=== PATIENT | female | born 1960 | race Caucasian/White ===

== ENCOUNTER 2017-06-21 12:19 | Inpatient (IN) ==
[2017-06-21] MEDS ORDERED: 0.9 % Sodium Chloride 1,000 ML IVC ONE ×2 (12:44→13:41)
[2017-06-21] MEDS ORDERED: Ibuprofen 800 MG TABLET PO ONE (12:45)
--- NOTE | 2017-06-21 12:48 | Emergency Department Note ---
Disposition Clinical Impression: Urinary tract infection, SIRS (systemic inflammatory response syndrome), Leukocytosis Disposition: Admitted As Inpatient Condition: Good Referrals: Mckay Yan MD [Primary Care Provider] - Forms: ED Satisfaction Letter Time of Disposition: 14:47 General Adult HPI - General Chief complaint: ED Shortness of Breath/Dyspnea Stated complaint: from PCP, R/O Sepsis Time Seen by Provider: 06/21/17 12:26 Source: patient, family Limitations: no limitations Nursing Notes Reviewed: Yes Vital Signs Reviewed: Yes - History of Present Illness HPI Narrative: 56-year-old female presents to the emergency room for fevers. States she has been sick for nearly a week with intermittent fevers up to 103. She states she has low back pain as well as a headache. She admits to a cough. No chest pain. No abdominal pain. She does have some slight loose stools as well as some nausea and vomiting. She denies any urinary symptoms. No other sick contacts at home. She has been treating her fevers with Tylenol on an as- needed basis. She states she went to her doctor today who sent her to the emergency room. She feels extremely weak and rundown. She has got a bunch of generalized complaints with malaise and fatigue. Onset (ago): week(s) (1 week) Pain Scale: 8 Consistency: constant Improves with: nothing Worsens with: nothing Treatments Prior to Arrival: other (Tylenol) - Related Data Allergies Allergy/AdvReac Type Severity Reaction Status Date / Time No Known Allergies Allergy Verified 06/21/17 12:28 Constitutional: Reports: fever, chills, weakness Eyes: Reports: as per HPI Cardiovascular: Denies: chest pain Respiratory: Reports: cough Gastrointestinal: Reports: nausea, vomiting Genitourinary: Denies: dysuria, frequency Musculoskeletal: Reports: back pain Integumentary: Reports: as per HPI Neurological: Reports: as per HPI Psychiatric: Reports: as per HPI Endocrine: Reports: as per HPI Hematological/Lymphatic: Reports: as per HPI Allergic/Immunologic: Reports: as per HPI Past Medical History - Past Medical History Medical history: Reports: diabetes, hyperlipidemia, hypertension, myocardial infarction - Social History Smoking Status: Never smoker Alcohol use: Reports: none Drug use: Reports: none Physical Exam - General Limitations: no limitations General appearance: alert - Head Head exam: atraumatic, normocephalic - Eye Eye exam: Present: normal appearance - ENT ENT exam: mucous membranes dry, other (Patient has some dry cracked lower lips.) - Neck Neck exam: Present: normal inspection - Chest Chest inspection: Present: normal inspection - Respiratory Respiratory exam: Present: normal lung sounds bilaterally. Absent: respiratory distress - Cardiovascular Cardiovascular exam: Present: normal rhythm, tachycardia - Abdominal Exam Abdominal exam: Present: soft, Non-Tender, normal bowel sounds - Extremities Exam Extremities exam: Present: normal inspection - Back Exam Back exam: Present: normal inspection - Neurological Exam Neurological exam: Present: alert, oriented X3 - Psychiatric Psychiatric exam: Present: normal affect, normal mood - Skin Skin exam: Present: warm, dry, intact Course Vital Signs Temperature 102.8 F H 06/21/17 12:23 Pulse Rate 104 06/21/17 12:23 Respiratory Rate 18 06/21/17 12:23 Blood Pressure 144/94 06/21/17 12:23 O2 Sat by Pulse Oximetry 93 06/21/17 12:23 Temperature 102.8 F H 06/21/17 12:23 Pulse Rate 97 06/21/17 14:02 Respiratory Rate 18 06/21/17 14:02 Blood Pressure 124/67 06/21/17 14:02 O2 Sat by Pulse Oximetry 92 06/21/17 14:02 Oxygen Delivery Oxygen Delivery Room Air Medical Decision Making - [facility] Narrative Medical decision making narrative: It appears the patient is suffering from urosepsis. A urine infection was present on the urinalysis. Chest x-ray was normal. She does have an elevated white count. Patient has a 19,000 white count. Lactate was normal. Patient will need to be admitted for further care of this. I have ordered a second liter of fluid. I have ordered IV Rocephin. Spoke with the hospitalist. No other significant lab abnormalities. - Medical Records Medical records reviewed: Yes I reviewed the patient's medical records. - Lab Data Lab results reviewed: Yes I reviewed the patient's lab results. Result diagrams: 06/21/17 13:12 06/21/17 13:12 Lab Results 06/21/17 06/21/17 06/21/17 Range/Units 12:51 13:12 13:12 WBC 19.5 H (4.3-11.1) K/mcL RBC 4.36 (3.82-4.97) M/mcL Hgb 12.1 (11.5-15.4) g/dL Hct 38.4 (35.3-44.9) % MCV 88.1 (83.0-100.0) fL MCH 27.8 L (28.0-33.3) pg MCHC 31.5 L (31.6-35.5) g/dL RDW 14.6 H (11.5-14.5) % Plt Count 209 (140-400) K/mcL MPV 10.9 (9.4-12.4) fL Immature Gran % 0.7 (0-4) % Seg Neutrophils % 83.5 % Lymphocytes % 10.6 % Monocytes % 4.8 % Eosinophils % 0.1 % Basophils % 0.3 % Neutrophils # 16.3 H (1.6-8.9) K/mcL Lymphocytes # 2.1 (0.6-4.6) K/mcL Monocytes # 0.9 (0.0-1.3) K/mcL Eosinophils # 0.0 (0.0-0.6) K/mcL Basophils # 0.1 (0.0-0.2) K/mcL Sodium 137 (136-145) mEq/L Potassium 3.6 (3.5-4.5) mEq/L Chloride 99 (98-109) mEq/L Carbon Dioxide 25 (19-29) mEq/L BUN 12 (7-20) mg/dL Creatinine 0.92 (0.57-1.11) mg/dL Est GFR ( Amer) > 60 (> 60) Est GFR (Non-Af Amer) > 60 (> 60) BUN/Creatinine Ratio 13 (6-26) Glucose 152 H (70-99) mg/dL Calculated Osmolality 287 (280-300) Lactic Acid (0.5-2.2) mmol/L Calcium 10.2 (8.6-10.8) mg/dL Total Bilirubin 1.1 (0.2-1.2) mg/dL Direct Bilirubin 0.5 (0.0-0.5) mg/dL Indirect Bilirubin 0.6 (0.0-1.2) mg/dL AST 30 (5-34) Units/L ALT 28 (0-55) Units/L Alkaline Phosphatase 152 H (38-126) Units/L Troponin I (0-0.03) ng/mL Serum Total Protein 8.7 H (6.0-8.3) g/dL Albumin 3.5 (3.5-5.0) g/dL Globulin 5.2 H (2.4-3.5) g/dL Albumin/Globulin Ratio 0.7 L (1.1-2.2) Lipase (8-78) Units/L Urine Color Yellow (Yellow) Urine Clarity Clear (Clear) Urine pH 6.5 (5.0-8.0) pH Units Ur Specific [place] 1.012 (1.010-1.025) Urine Protein Negative (Neg-Trace) mg/dL Urine Glucose (UA) Normal (Normal) mg/dL Urine Ketones Negative (Negative) mg/dL Urine Blood Negative (Negative) Urine Nitrite Negative (Negative) Urine Bilirubin Negative (Negative) Urine Urobilinogen Normal (Normal) mg/dL Ur Leukocyte Esterase Moderate H (Negative) Urine Microscopic RBC 0-3 (0-3) per hpf Urine Microscopic WBC 30-50 H (0-3) per hpf Ur Squamous Epith Cells Many H (None-Few) per lpf Urine Bacteria None Seen (None-Few) per hpf Hyaline Casts None Seen (None-Few) per lpf Ur Culture Indicated? YES A (NO) 06/21/17 06/21/17 06/21/17 Range/Units 13:12 13:12 13:12 WBC (4.3-11.1) K/mcL RBC (3.82-4.97) M/mcL Hgb (11.5-15.4) g/dL Hct (35.3-44.9) % MCV (83.0-100.0) fL MCH (28.0-33.3) pg MCHC (31.6-35.5) g/dL RDW (11.5-14.5) % Plt Count (140-400) K/mcL MPV (9.4-12.4) fL Immature Gran % (0-4) % Seg Neutrophils % % Lymphocytes % % Monocytes % % Eosinophils % % Basophils % % Neutrophils # (1.6-8.9) K/mcL Lymphocytes # (0.6-4.6) K/mcL Monocytes # (0.0-1.3) K/mcL Eosinophils # (0.0-0.6) K/mcL Basophils # (0.0-0.2) K/mcL Sodium (136-145) mEq/L Potassium (3.5-4.5) mEq/L Chloride (98-109) mEq/L Carbon Dioxide (19-29) mEq/L BUN (7-20) mg/dL Creatinine (0.57-1.11) mg/dL Est GFR ( Amer) (> 60) Est GFR (Non-Af Amer) (> 60) BUN/Creatinine Ratio (6-26) Glucose (70-99) mg/dL Calculated Osmolality (280-300) Lactic Acid 1.7 (0.5-2.2) mmol/L Calcium (8.6-10.8) mg/dL Total Bilirubin (0.2-1.2) mg/dL Direct Bilirubin (0.0-0.5) mg/dL Indirect Bilirubin (0.0-1.2) mg/dL AST (5-34) Units/L ALT (0-55) Units/L Alkaline Phosphatase (38-126) Units/L Troponin I 0.00 (0-0.03) ng/mL Serum Total Protein (6.0-8.3) g/dL Albumin (3.5-5.0) g/dL Globulin (2.4-3.5) g/dL Albumin/Globulin Ratio (1.1-2.2) Lipase 14 (8-78) Units/L Urine Color (Yellow) Urine Clarity (Clear) Urine pH (5.0-8.0) pH Units Ur Specific [place] (1.010-1.025) Urine Protein (Neg-Trace) mg/dL Urine Glucose (UA) (Normal) mg/dL Urine Ketones (Negative) mg/dL Urine Blood (Negative) Urine Nitrite (Negative) Urine Bilirubin (Negative) Urine Urobilinogen (Normal) mg/dL Ur Leukocyte Esterase (Negative) Urine Microscopic RBC (0-3) per hpf Urine Microscopic WBC (0-3) per hpf Ur Squamous Epith Cells (None-Few) per lpf Urine Bacteria (None-Few) per hpf Hyaline Casts (None-Few) per lpf Ur Culture Indicated? (NO) - Radiology Data Radiology results reviewed: Yes I reviewed the patient's radiology results. Critical Care Time Critical Care Time: Yes Total Critical Care Time: 35 Attestation: Critical care time spent in medical resuscitation with IV fluids and treatment of SIRS criteria.
[2017-06-21 13:15] LABS: Bilirubin,Urine Negative (Negative); Blood,Urine Negative (Negative); Clarity,Urine Clear (Clear); Color,Urine Yellow (Yellow); Glucose,Urine (UA) Normal (Normal); Ketones,Urine Negative (Negative); Leukocyte Esterase,Urine Moderate (Negative); Nitrite,Urine Negative (Negative); PH,Urine 6.5 pH Units (5.0-8.0); Protein,Urine Negative (Neg-Trace); Specific Gravity,Urine 1.012 (1.010-1.025); Urobilinogen,Urine Normal (Normal)
[2017-06-21 13:18] LABS: Bacteria,Urine None Seen per hpf (None-Few); Hyaline Casts,Urine None Seen per lpf (None-Few); RBC,Urine 0-3 per hpf (0-3); Squamous Epithelial Cell,Urine Many per lpf (None-Few); WBC,Urine 30-50 per hpf (0-3)
[2017-06-21 13:23] LABS: Basophils # 0.1 K/mcL (0.0-0.2); Basophils % 0.3 %; Eosinophils % 0.1 %; Hematocrit 38.4 % (35.3-44.9); Hemoglobin 12.1 g/dL (11.5-15.4); Immature Granulocytes % 0.7 % (0-4); Lymphocytes # 2.1 K/mcL (0.6-4.6); Lymphocytes % 10.6 %; Mean Corpuscular HGB Conc 31.5 g/dL (31.6-35.5); Mean Corpuscular Hemoglobin 27.8 pg (28.0-33.3); Mean Corpuscular Volume 88.1 fL (83.0-100.0); Mean Platelet Volume 10.9 fL (9.4-12.4); Monocytes # 0.9 K/mcL (0.0-1.3); Monocytes % 4.8 %; Neutrophils # 16.3 K/mcL (1.6-8.9); Platelet Count 209 K/mcL (140-400); Red Blood Count 4.36 M/mcL (3.82-4.97); Red Cell Distribution Width 14.6 % (11.5-14.5); Segmented Neutrophils % 83.5 %
[2017-06-21 13:52] LABS: Alanine Aminotransferase 28 Units/L (0-55); Albumin 3.5 g/dL (3.5-5.0); Albumin/Globulin Ratio 0.7 (1.1-2.2); Alkaline Phosphatase 152 Units/L (38-126); Aspartate Amino Transferase 30 Units/L (5-34); BUN/Creatinine Ratio 13 (6-26); Bilirubin,Direct 0.5 mg/dL (0.0-0.5); Bilirubin,Indirect 0.6 mg/dL (0.0-1.2); Bilirubin,Total 1.1 mg/dL (0.2-1.2); Blood Urea Nitrogen 12 mg/dL (7-20); Calcium 10.2 mg/dL (8.6-10.8); Carbon Dioxide 25 mEq/L (19-29); Chloride 99 mEq/L (98-109); Globulin 5.2 g/dL (2.4-3.5); Glucose 152 mg/dL (70-99); Osmolality,Calculated 287 (280-300); Potassium 3.6 mEq/L (3.5-4.5); Sodium 137 mEq/L (136-145); Total Protein 8.7 g/dL (6.0-8.3); eGFR For African Americans > 60 (> 60); eGFR For Non-African Americans > 60 (> 60)
[2017-06-21] MEDS ORDERED: Naloxone 0.4 MG/ML INJ IVP PRN (17:39)
[2017-06-21] MEDS ORDERED: Ondansetron 4 MG/2 ML VIAL IVP PRN (17:39)
--- NOTE | 2017-06-21 17:52 | Internal Med History&Physical ---
Date of Encounter: 06/21/17 Time of Encounter: 17:48 Assessment and Plan (1) SIRS (systemic inflammatory response syndrome) Current visit: Yes Status: Acute Patient presents to the ED with high-grade fever of 103, lasting longer than 3 days, tachycardia, hypotension, meets SIRS criteria. She has probable sepsis secondary to UTI infection. In the ED started on broad-spectrum antibiotics. Plan is continue the broad-spectrum antibiotics ceftriaxone 1 g every 24 hours and narrow antibiotics based on results of urine cultures. If symptoms worsen or persist consider obtaining a retroperitoneal ultrasound. Additionally blood cultures were sent on the ED. Awaiting results of blood cultures and will treat based upon results. Received 2 L fluid bolus in the emergency department , plan is to continue gentle hydration with 0.9 with saline at 100 mL per hour. Continuous telemetry Continuous SPO2 CBC CMP in the a.m. Hold blood pressure medications for now she is borderline hypotensive; consider restarting if the patient becomes hypertensive (2) Sepsis secondary to UTI Current visit: Yes Status: Acute Presented to [facility] with fevers, dark urine that is malodorous, chills, night sweats, fatigue, weakness. UA and EGD revealed leukocytes. Probable UTI, additionally, patient meets SIRS criteria. Urine culture AND blood cultures sent and ED. additionally, she was given ceftriaxone 1 g. Plan is to admit as inpatient Continue antibiotic therapy with ceftriaxone 1 g daily-will consider de- escalating antibiotic therapy upon results of urine culture; plan is to start with antibiotic therapy and if no improvement or if symptoms persist we will obtain a retroperitoneal ultrasound. Gentle hydration with 0.9% normal saline at 100 miles per hour. Continuous cardiac monitoring Continuous SPO2 monitoring Complete blood count and CMP ordered in the a.m. DVT prophylaxis started with 40 mg SC Lovenox (3) HTN (hypertension) Current visit: Yes Status: Chronic History of essential hypertension. However, at this time she is borderline with systolic blood pressures running in the low 100s. She did receive a 2 L fluid bolus in the ED which temporarily improved her systolic blood pressure to 120'S. However, at the time of exam systolic blood pressures were in the low 100s. We will hold home blood pressure medications for now. Continue to monitor and consider restarting home blood pressure medications if the patient becomes hypertensive. Qualifiers: Hypertension type: essential hypertension Qualified Code(s): I10 - Essential (primary) hypertension (4) Diabetes Current visit: Yes Status: Chronic Patient has history of diabetes mellitus. Is on metformin at home. Plan is to stop metformin during this admission and place her on low sliding scale insulin coverage with before meals and at bedtime Accu-Cheks. We will consider altering sliding scale coverage used upon glucose results. Additionally, she does have neuropathy in all 4 extremities, we will continue home dose of gabapentin Qualifiers: Diabetes mellitus type: type 2 Diabetes mellitus complication status: with unspecified complications Diabetes mellitus process excellence manager insulin use: without process excellence manager use Qualified Code(s): E11.8 - Type 2 diabetes mellitus with unspecified complications (5) Leukocytosis Current visit: Yes Status: Acute Leukocytosis noted upon lab work without bandemia. Highly suspicious for sepsis secondary to UTI. Service criteria met and patient is being treated as sepsis secondary to UTI. Complete blood count in the morning Qualifiers: Leukocytosis type: unspecified Qualified Code(s): D72.829 - Elevated white blood cell count, unspecified (6) DVT prophylaxis Current visit: Yes Status: Acute Due to sepsis and prolonged immobilization secondary to illness the patient is a high risk for DVT. Starting Lovenox SC 40 mg daily Internal Medicine - H&P: HPI Chief complaint: Fever, malaise, fatigue, vomiting, diarrhea ongoing X4 DAYS Admitted From: Home Plans for Post Hospital Care: Home History of present illness: Ms. Gaxiola is a 56 year old female with a past medical history of hypertension, diabetes, neuropathy, HLD, GERD, [place] with CABG 4 vessels. She presents to [facility] today with a 4 day history of fatigue, malaise, low back pain, leg, dark foul-smelling urine, and fever. She reports fever being 103 at the highest and 101 at the lowest, lasting approximate 4 days. All information obtained from chart review and patient report. She denies being on any antibiotics within the last 90 days, denies having any history of UTI. Admits that 4 days ago she began experiencing high-grade fever, dark colored urine with a foul smell, and chills. She came to the ED today to seek treatment because she began to feel weakness and fatigue as well. He has been taking Tylenol at home and reports that it is not helping and fevers. She denies any dysuria or urinary frequency or suprapubic pain, however, she does admit to low back pain which at the time of this exam appears to be lumbar pain. She had a urinalysis with urine cultures sent in the ED, and blood cultures drawn. Urinalysis indicated that she had leukocytes in her urine and then culture was indicated she received 1 g of ceftriaxone in the ED. Distally , she received 2 L fluid bolus as she was hypotensive. Blood pressure initially responded to fluid bolus however, at the time of my assessment began to drop back down to the low 100s systolically. Additionally, chest x-ray was completed in the ED and negative for any acute process. Lactic acids were drawn a result of 1.7. Troponin was drawn and negative at 0.00. She is being admitted to the [facility] for further workup and evaluation. Past Med Surg Social Fam HX - Past Medical History Medical history: diabetes, hyperlipidemia, hypertension, myocardial infarction - Social History Smoking Status: Never smoker Alcohol use: none Drug use: none - Family History Father Race: Family Member Ethnicity: Non- Living Status: Still Living Hx Family Endocrine Disorder: Yes (Diabetes mellitus) Mother Race: Family Member Ethnicity: Non- Living Status: Still Living Hx Family Cardiac Disorders: Yes (CAD) Internal Medicine - H&P: Meds Atorvastatin [Lipitor] 40 mg PO HS 06/21/17 [History] Cholecalciferol (Vitamin D3) [Vitamin D] 2,000 unit PO DAILY 06/21/17 [History] Citalopram Hydrobromide [Celexa] 40 mg PO DAILY 06/21/17 [History] Cyclobenzaprine [Flexeril] 10 mg PO TID 06/21/17 [History] Gabapentin [Neurontin] 600 mg PO TID 06/21/17 [History] HYDROcodone/Acet 5/325 mg [[place] 5-325 mg] 1 tab PO Q6H PRN 06/21/17 [History] Isosorbide MONOnitrate (24 HR) [Imdur] 60 mg PO DAILY 06/21/17 [History] Lisinopril [Zestril] 5 mg PO DAILY 06/21/17 [History] Metoprolol [Lopressor] 25 mg PO BID 06/21/17 [History] Omeprazole [PriLOSEC] 40 mg PO DAILY 06/21/17 [History] hydroCHLOROthiazide [Hydrochlorothiazide] 12.5 mg PO DAILY 06/21/17 [History] metFORMIN [Glucophage] 500 mg PO BIDWM 06/21/17 [History] Allergies No Known Allergies Allergy (Verified 06/21/17 12:28) All Systems PM: A 10-system review of systems was performed and is negative for pertinent findings except as documented above in the HPI. - Constitutional Constitutional: chills, fatigue, lethargy, malaise, weakness, no fever(s), no night sweats Additional comments: Chills ongoing for last 4 days along with fever and malaise and fatigue - EENT Eyes: no change in vision, no discharge, no pain, no photophobia Ears: no ear discharge, no ear pain, no tinnitus Nose, mouth and throat: no dysphagia, no nasal discharge, no neck pain, no sore throat - Cardiovascular Cardiovascular ROS IM: no chest pain, no diaphoresis, no dyspnea, no edema, no lightheadedness, no palpitations, no syncope - Respiratory Respiratory: no cough, no dyspnea, no wheezing, no excessive phlegm production - Gastrointestinal Gastrointestinal: no abdominal pain, no change in bowel habits, no change in stool character, no constipation, no diarrhea, no hematemesis, no hematochezia, no melena, no nausea, no vomiting - Genitourinary Genitourinary: no change in urinary stream, no difficulty urinating, no difficulty voiding, no dysuria, no flank pain, no hematuria, no pelvic pain, no post void dribbling, no urinary frequency, no urinary hesitancy, no urinary incontinence, no urinary urgency Additional comments: Denies any difficulty urinating, urgency, frequency, dysuria. However, does admit to low back pain. - Musculoskeletal Musculoskeletal ROS IM: back pain (LOW Back pain), no numbness, no tingling - Integumentary Integumentary IM: no rash, no unusual bruising - Neurological Neurological ROS: no confusion, no convulsions, no disequilibrium, no dizziness , no focal weakness, no numbness, no tingling, no tremor(s) - Hematologic/Lymphatic Hematologic/Lymphatic: no easy bruising - Constitutional Vitals: Temp Pulse Resp BP Pulse Ox 100.4 F H 83 18 117/63 95 06/21/17 14:02 06/21/17 15:46 06/21/17 16:36 06/21/17 16:36 06/21/17 15:46 General appearance: Present: cooperative, A&O X 3, pleasant, no acute distress, answers questions appropriately (Resident and resting in bed upon examination) - Head Head exam: Present: atraumatic, normocephalic - Eye Eye exam: Present: EOMI, PERRL, conjuntiva pink, sclera anicteric Pupils: Present: PERRL - Neck Neck exam general surgery: Present: supple, trachea midline. Absent: lymphadenopathy - Respiratory Respiratory exam: Present: CTAB. Absent: accessory muscle use, rales, rhonchi, wheezes - Cardiovascular Cardiovascular exam: Present: RRR, +S1, +S2. Absent: diastolic murmur, gallop, rubs, systolic murmur - GI/Abdominal GI/Abdominal exam: Present: normal bowel sounds, soft, no peritoneal signs. Absent: distended, guarding, tenderness - Extremities Exam Extremities exam: Present: warm, radial pulses palpable and symmetrical. Absent : calf tenderness, cyanotic, pedal edema - Back Exam Back exam: Absent: CVA tenderness (L), CVA tenderness (R) Additional comments: Lumbar spinal pain noted, however, no pain to palpation. Patient admits to pain upon prolonged sitting, lying. Intermittent pain with range of motion - Neurological Exam Neurological exam: Present: alert, CN II-XII intact, oriented X3, no focal deficits, strengths equal and symetr throughout. Absent: pronater drift, facial droop, speech deficit - Psychiatric Psychiatric exam: Present: normal mood - Skin Skin exam: Present: dry, intact Internal Med - H&P Results - Labs CBC & Chem 7: 06/21/17 13:12 06/21/17 13:12 - Diagnostic Studies Chest x-ray Status: image reviewed by me (Chest x-ray exhibited no acute process)
[2017-06-21] MEDS ORDERED: D5% in Water 1,000 ML IVC PRN (18:13)
[2017-06-21] MEDS ORDERED: *HR* Dextrose 50 % in Water (Syg) 50 ML SYRINGE IVP PRN (18:13)
[2017-06-21] MEDS ORDERED: Dextrose Gel 15 GM PO PRN ×2 (18:13)
[2017-06-21] MEDS: Insulin LISPRO 300 UNITS/3 ML VIAL SQ SCH (19:39)
[2017-06-21] MEDS: 0.9 % Sodium Chloride 1,000 ML IVC SCH (19:48)
[2017-06-21] MEDS: Gabapentin 300 MG CAPSULE PO SCH (19:51)
[2017-06-22] MEDS: Ibuprofen 400 MG TABLET PO PRN ×2 (04:14→21:16)
[2017-06-22] MEDS: *HR* Enoxaparin 40 MG/0.4 ML SYRINGE SQ SCH (05:03)
[2017-06-22] MEDS: 0.9 % Sodium Chloride 1,000 ML IVC SCH ×2 (05:03→12:24)
[2017-06-22 05:04] LABS: Basophils % 0.2 %; Eosinophils # 0.1 K/mcL (0.0-0.6); Eosinophils % 0.6 %; Hematocrit 30.5 % (35.3-44.9); Immature Granulocytes % 0.4 % (0-4); Lymphocytes # 1.6 K/mcL (0.6-4.6); Lymphocytes % 13.4 %; Mean Corpuscular HGB Conc 32.5 g/dL (31.6-35.5); Mean Corpuscular Hemoglobin 28.3 pg (28.0-33.3); Mean Corpuscular Volume 87.1 fL (83.0-100.0); Mean Platelet Volume 11.6 fL (9.4-12.4); Monocytes # 0.7 K/mcL (0.0-1.3); Neutrophils # 9.6 K/mcL (1.6-8.9); Platelet Count 162 K/mcL (140-400); Red Cell Distribution Width 14.6 % (11.5-14.5); Segmented Neutrophils % 79.4 %
[2017-06-22 05:10] LABS: Hemoglobin 9.9 g/dL (11.5-15.4)
[2017-06-22 05:23] LABS: Alanine Aminotransferase 22 Units/L (0-55); Albumin 2.8 g/dL (3.5-5.0); Albumin/Globulin Ratio 0.7 (1.1-2.2); Alkaline Phosphatase 126 Units/L (38-126); Aspartate Amino Transferase 24 Units/L (5-34); BUN/Creatinine Ratio 16 (6-26); Bilirubin,Total 0.7 mg/dL (0.2-1.2); Blood Urea Nitrogen 12 mg/dL (7-20); Calcium 8.7 mg/dL (8.6-10.8); Carbon Dioxide 25 mEq/L (19-29); Chloride 108 mEq/L (98-109); Globulin 4.2 g/dL (2.4-3.5); Glucose 141 mg/dL (70-99); Osmolality,Calculated 290 (280-300); Potassium 3.7 mEq/L (3.5-4.5); Sodium 139 mEq/L (136-145); eGFR For African Americans > 60 (> 60); eGFR For Non-African Americans > 60 (> 60)
[2017-06-22] MEDS: Insulin LISPRO 300 UNITS/3 ML VIAL SQ SCH ×4 (09:52→21:17)
[2017-06-22] MEDS: Gabapentin 300 MG CAPSULE PO SCH ×3 (09:52→21:15)
[2017-06-22] MEDS: Cholecalciferol (D-3) 1,000 UNIT TABLET PO SCH (09:53)
[2017-06-22] MEDS: Isosorbide MONOnitrate (24 HR) 60 MG TAB.ER.24H PO SCH (09:53)
--- NOTE | 2017-06-22 13:04 | Internal Med Progress Note ---
<Martin Mendez - Last Filed: 06/22/17 14:22> Date of Encounter: 06/22/17 Time of Encounter: 12:59 - Assessment and plan (1) Sepsis Current Visit: Yes Status: Acute Assessment and plan: In ED fever 3/4 fever 103, 102.8, WBC 19.5. ED gave ceftriaxone, flagyl. most likely GI vs viral gi infection vs less likely pneumonia vs less likely UTI. CXR 8/10 - no evidence of acute cardiopulmonary disease. Urine Cx - no pathogens. UA moderate for luekocyte esterase. Today - T97.7, HR 84, RR 15, WBC 12.1 GI panel w/ c. diff - pending. Will start on PO vanc if comes back negative Blood culture - pending fluids stopped ct. flagyl + ceftriaxone Qualifiers: Qualified Code(s): A41.9 - Sepsis, unspecified organism (2) HTN (hypertension) Current Visit: Yes Status: Chronic Assessment and plan: BP have been stable. home ACEI restarted Qualifiers: Hypertension type: essential hypertension Qualified Code(s): I10 - Essential (primary) hypertension (3) DVT prophylaxis Current Visit: Yes Status: Acute Assessment and plan: continue Lovenox (4) Diabetes Current Visit: Yes Status: Chronic Assessment and plan: Goal <180 Continue SSI Qualifiers: Diabetes mellitus type: type 2 Diabetes mellitus complication status: with unspecified complications Diabetes mellitus nursing home insulin use: without senior electronics design engineer use Qualified Code(s): E11.8 - Type 2 diabetes mellitus with unspecified complications - Subjective Interval history: Ms Gaxiola is 56 yo F admit day 1 due to 4 day of fatigue, low back pain, dark foul smelling urine and stool, and fever of 103 with Hx: HTN, DM, neuropathy, HLD, GERD, [place] w/ CABG 4 vessels. Patient reports that "whatever you're doing it's helping" but had a foul smelling water bowel movement today. she denies current f/c/chest pain/dyspnea. - Constitutional Vitals: Temp Pulse Resp BP Pulse Ox 98.3 F 83 18 108/56 94 06/22/17 12:29 06/22/17 12:29 06/22/17 12:29 06/22/17 12:29 06/22/17 12:29 General appearance: Present: cooperative, A&O X 3, pleasant, no acute distress, answers questions appropriately (Resident and resting in bed upon examination) - Head Head exam: Present: atraumatic, normocephalic - Respiratory Respiratory exam: Present: CTAB. Absent: accessory muscle use, rales, rhonchi, wheezes - Cardiovascular Cardiovascular exam: Present: RRR, +S1, +S2. Absent: diastolic murmur, gallop, rubs, systolic murmur - GI/Abdominal GI/Abdominal exam: Present: normal bowel sounds, soft, no peritoneal signs. Absent: distended, tenderness - Neurological Exam Neurological exam: Present: alert, oriented X3 - Psychiatric Psychiatric exam: Present: normal affect, normal mood Internal Medicine: Result - Labs CBC & Chem 7: 06/22/17 04:06 06/22/17 04:06 Labs: Short CBC 06/22/17 Range/Units 04:06 WBC 12.1 H (4.3-11.1) K/mcL Hgb 9.9 L D (11.5-15.4) g/dL Hct 30.5 L (35.3-44.9) % Plt Count 162 (140-400) K/mcL Neutrophils # 9.6 H (1.6-8.9) K/mcL BMP 06/22/17 04:06 Sodium 139 Potassium 3.7 Chloride 108 Carbon Dioxide 25 BUN 12 Creatinine 0.76 Glucose 141 H Calcium 8.7 Liver Function 06/22/17 Range/Units 04:06 Total Bilirubin 0.7 (0.2-1.2) mg/dL AST 24 (5-34) Units/L ALT 22 (0-55) Units/L Alkaline Phosphatase 126 (38-126) Units/L Albumin 2.8 L (3.5-5.0) g/dL Consult Discharge Plan - Plan Referrals: Mckay Yan MD [Primary Care Provider] - (web request sent on 06/22/17) <Kavon Anthony - Last Filed: 06/22/17 16:06> Date of Encounter: 06/22/17 - Constitutional Vitals: Temp Pulse Resp BP Pulse Ox 98.3 F 83 18 108/56 94 06/22/17 12:29 06/22/17 12:29 06/22/17 12:29 06/22/17 12:29 06/22/17 12:29 Internal Medicine: Result - Labs CBC & Chem 7: 06/22/17 04:06 06/22/17 04:06 Labs: Short CBC 06/22/17 Range/Units 04:06 WBC 12.1 H (4.3-11.1) K/mcL Hgb 9.9 L D (11.5-15.4) g/dL Hct 30.5 L (35.3-44.9) % Plt Count 162 (140-400) K/mcL Neutrophils # 9.6 H (1.6-8.9) K/mcL BMP 06/22/17 04:06 Sodium 139 Potassium 3.7 Chloride 108 Carbon Dioxide 25 BUN 12 Creatinine 0.76 Glucose 141 H Calcium 8.7 Liver Function 06/22/17 Range/Units 04:06 Total Bilirubin 0.7 (0.2-1.2) mg/dL AST 24 (5-34) Units/L ALT 22 (0-55) Units/L Alkaline Phosphatase 126 (38-126) Units/L Albumin 2.8 L (3.5-5.0) g/dL - Attending Attestation I examined this patient and my medical decision-making was reviewed with the Resident Physician on 06/22/17. I agree with the documented findings, disposition and treatment plan as described except to the extent set forth below. 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 CXR no infiltraes, UA dorty,Urine culture: No growth A/P Presumed sepsis: Continue current management, increase ceftriaxone to 2g, add flagyl po, send stool work up, send C.diff Resume home meds Rest of details as in resident physician's documentation
--- NOTE | 2017-06-22 15:01 | Electrocardiograph Report ---
[address] [place] [address] Test Date: 2017-06-21 Pat Name: Cary Gaxiola Department: 104 Room: 2A Gender: F Block Chopper Hand: AM : 1960 Requested By: Gerardo Maravilla Order Number: [id number] Reading MD: Elisa Goss Measurements Intervals [place] Rate: 100 P: 8 FL: 165 QRS: 15 QRSD: 88 T: 30 QT: 354 QTc: 411 Interpretive Statements SINUS TACHYCARDIA LOW QRS VOLTAGE IN PRECORDIAL LEADS MODERATE ST DEPRESSION Electronically Signed On 06-22-2017 14:59:53 EDT by Elisa Goss
[2017-06-22 15:37] LABS: Adenovirus F 40/41 PCR Not detected (Not detect); Astrovirus PCR Not detected (Not detect); C.difficile Toxin A/B by PCR Not detected (Not detect); Campylobacter by PCR Not detected (Not detect); Cryptosporidium by PCR Not detected (Not detect); Cyclospora cayetanensis PCR Not detected (Not detect); E. coli O157 by PCR Not detected (Not detect); Entamoeba histolytica PCR Not detected (Not detect); Enteroaggregative E.coli(EAEC) Not detected (Not detect); Enteropathogenic E.coli(EPEC) Not detected (Not detect); Enterotoxigenic E.coli (ETEC) Not detected (Not detect); Giardia lamblia PCR Not detected (Not detect); Norovirus GI/GII PCR Not detected (Not detect); Plesiomonas shigelloides PCR Not detected (Not detect); Rotavirus A PCR Not detected (Not detect); Salmonella PCR Not detected (Not detect); Sapovirus PCR Not detected (Not detect); Shig/EnteroinvasiveE coli EIEC Not detected (Not detect); Shigalike tox-prod E coli STEC Not detected (Not detect); Vibrio PCR Not detected (Not detect); Vibrio cholerae PCR Not detected (Not detect); Yersinia enterocolitica PCR Not detected (Not detect)
[2017-06-22] MEDS ORDERED: MetroNIDAZOLE 500 MG/100 ML 500 MG/100 ML BAG IVPB SCH (16:00)
[2017-06-22] MEDS: metroNIDAZOLE 500 MG TABLET PO SCH ×2 (17:43→21:16)
[2017-06-23] MEDS: *HR* Enoxaparin 40 MG/0.4 ML SYRINGE SQ SCH (04:21)
[2017-06-23 06:31] LABS: Hematocrit 31.5 % (35.3-44.9); Hemoglobin 9.7 g/dL (11.5-15.4); Mean Corpuscular HGB Conc 30.8 g/dL (31.6-35.5); Mean Corpuscular Volume 90.8 fL (83.0-100.0); Mean Platelet Volume 11.5 fL (9.4-12.4); Platelet Count 145 K/mcL (140-400); Red Blood Count 3.47 M/mcL (3.82-4.97); Red Cell Distribution Width 14.7 % (11.5-14.5)
[2017-06-23 06:46] LABS: BUN/Creatinine Ratio 14 (6-26); Blood Urea Nitrogen 10 mg/dL (7-20); Calcium 8.9 mg/dL (8.6-10.8); Carbon Dioxide 27 mEq/L (19-29); Chloride 108 mEq/L (98-109); Glucose 124 mg/dL (70-99); Osmolality,Calculated 294 (280-300); Potassium 3.5 mEq/L (3.5-4.5); Sodium 142 mEq/L (136-145); eGFR For African Americans > 60 (> 60); eGFR For Non-African Americans > 60 (> 60)
--- NOTE | 2017-06-23 08:03 | Internal Med Progress Note ---
<Martin Mendez - Last Filed: 06/23/17 11:16> Date of Encounter: 06/23/17 Time of Encounter: 08:01 - Assessment and plan (1) Sepsis Current Visit: Yes Status: Acute Assessment and plan: In ED fever 3/4 fever 103, 102.8, WBC 19.5. ED gave ceftriaxone, flagyl. most likely viral gi infection vs less likely pneumonia vs less likely UTI vs less likely bacterial GI. CXR 06/21 - no evidence of acute cardiopulmonary disease. Urine Cx - no pathogens. UA moderate for luekocyte esterase. GI panel is negative Today - T97.7, HR 84, RR 15, WBC 12.1 Blood culture - pending ct. flagyl + ceftriaxone Qualifiers: Qualified Code(s): A41.9 - Sepsis, unspecified organism (2) HTN (hypertension) Current Visit: Yes Status: Chronic Assessment and plan: BP have been stable. home ACEI restarted Qualifiers: Hypertension type: essential hypertension Qualified Code(s): I10 - Essential (primary) hypertension (3) DVT prophylaxis Current Visit: Yes Status: Acute Assessment and plan: continue Lovenox (4) Diabetes Current Visit: Yes Status: Chronic Assessment and plan: Goal <180 Continue SSI Qualifiers: Diabetes mellitus type: type 2 Diabetes mellitus complication status: with unspecified complications Diabetes mellitus half-way insulin use: without rat exterminator use Qualified Code(s): E11.8 - Type 2 diabetes mellitus with unspecified complications - Subjective Interval history: Ms Gaxiola is 56 yo F admit day 1 due to 4 day of fatigue, low back pain, dark foul smelling urine and stool, and fever of 103 with Hx: HTN, DM, neuropathy, HLD, GERD, [place] w/ CABG 4 vessels. Patient states she's feeling better this morning but had episodes of diarrhea which she was resolved with immodium. she denies current f/c/chest pain/ dyspnea. - Constitutional Vitals: Temp Pulse Resp BP Pulse Ox 97.6 F 76 18 121/72 95 06/23/17 07:50 06/23/17 07:50 06/23/17 07:50 06/23/17 07:50 06/23/17 07:50 General appearance: Present: cooperative, A&O X 3, pleasant, no acute distress, answers questions appropriately (Resident and resting in bed upon examination) - Head Head exam: Present: atraumatic, normocephalic - Respiratory Respiratory exam: Present: CTAB. Absent: accessory muscle use, rales, rhonchi, wheezes - Cardiovascular Cardiovascular exam: Present: RRR, +S1, +S2. Absent: diastolic murmur, gallop, rubs, systolic murmur - GI/Abdominal GI/Abdominal exam: Present: normal bowel sounds, soft, no peritoneal signs. Absent: distended, tenderness - Psychiatric Psychiatric exam: Present: normal affect, normal mood (she was tired because she just woke up) Internal Medicine: Result - Labs CBC & Chem 7: 06/23/17 05:32 06/23/17 05:32 Labs: Short CBC 06/23/17 Range/Units 05:32 WBC 7.6 (4.3-11.1) K/mcL Hgb 9.7 L (11.5-15.4) g/dL Hct 31.5 L (35.3-44.9) % Plt Count 145 (140-400) K/mcL [facility] 06/23/17 05:32 Sodium 142 Potassium 3.5 Chloride 108 Carbon Dioxide 27 BUN 10 Creatinine 0.71 Glucose 124 H Calcium 8.9 Consult Discharge Plan - Plan Referrals: Mckay Yan MD [Primary Care Provider] - (web request sent on 06/22/17) <Kavon Anthony - Last Filed: 06/23/17 12:21> Date of Encounter: 06/23/17 - Constitutional Vitals: Temp Pulse Resp BP Pulse Ox 97.3 F L 74 17 101/56 92 06/23/17 11:35 06/23/17 11:35 06/23/17 11:35 06/23/17 11:35 06/23/17 11:35 Internal Medicine: Result - Labs CBC & Chem 7: 06/23/17 05:32 06/23/17 05:32 Labs: Short CBC 06/23/17 Range/Units 05:32 WBC 7.6 (4.3-11.1) K/mcL Hgb 9.7 L (11.5-15.4) g/dL Hct 31.5 L (35.3-44.9) % Plt Count 145 (140-400) K/mcL [facility] 06/23/17 05:32 Sodium 142 Potassium 3.5 Chloride 108 Carbon Dioxide 27 BUN 10 Creatinine 0.71 Glucose 124 H Calcium 8.9 - Attending Attestation I examined this patient and my medical decision-making was reviewed with the Resident Physician on 06/23/17. I agree with the documented findings, disposition and treatment plan as described except to the extent set forth below. 56 F being managed for Presumed sepsis based on fever, tachycardia, leukocytosis and a presumed GI source She has a PMH of HTN, CAD, DM, Obesity She is seen this morning with spouse at the bedside Denies nw complains She feels and clinically looks better Her last febrile episode was 06/22 2039 GI work up including C.diff was negative Cultures are preliminary negative Physical exam: Afebrile, cold sores on her lower lips, morbidly obese, sitting up in bed in no form of distress, chest is clear, abdomen is not tender=er, no pedal edema labs and Imaging reviewed: Leukocytosis resolved, HB is stale, PLT WNL, A1C 7.1, Chem WNL. CXR no infiltrates, UA dirty,Urine culture: No growth, blood culture negative A/P Presumed sepsis-Possibly viral syndrome: Continue ceftriaxone, flagyl, imodium Gastroenteritis: Possibly viral Await final cultures and we would escalate antibiotics should cultures return final negative Rest of details as in resident physician's documentation
[2017-06-23] MEDS: Cholecalciferol (D-3) 1,000 UNIT TABLET PO SCH (09:24)
[2017-06-23] MEDS: Isosorbide MONOnitrate (24 HR) 60 MG TAB.ER.24H PO SCH (09:24)
[2017-06-23] MEDS: Gabapentin 300 MG CAPSULE PO SCH ×3 (09:24→20:56)
[2017-06-23] MEDS: metroNIDAZOLE 500 MG TABLET PO SCH ×3 (09:25→20:56)
[2017-06-23] MEDS: Insulin LISPRO 300 UNITS/3 ML VIAL SQ SCH ×4 (09:25→21:23)
[2017-06-23] MEDS: Ibuprofen 400 MG TABLET PO PRN ×2 (09:29→20:56)
[2017-06-24 05:04] LABS: Hematocrit 29.4 % (35.3-44.9); Hemoglobin 9.2 g/dL (11.5-15.4); Mean Corpuscular HGB Conc 31.3 g/dL (31.6-35.5); Mean Corpuscular Hemoglobin 27.7 pg (28.0-33.3); Mean Corpuscular Volume 88.6 fL (83.0-100.0); Mean Platelet Volume 11.1 fL (9.4-12.4); Platelet Count 166 K/mcL (140-400); Red Blood Count 3.32 M/mcL (3.82-4.97); Red Cell Distribution Width 14.6 % (11.5-14.5)
[2017-06-24 05:17] LABS: BUN/Creatinine Ratio 21 (6-26); Blood Urea Nitrogen 15 mg/dL (7-20); Calcium 8.8 mg/dL (8.6-10.8); Carbon Dioxide 29 mEq/L (19-29); Chloride 108 mEq/L (98-109); Glucose 123 mg/dL (70-99); Osmolality,Calculated 294 (280-300); Potassium 3.8 mEq/L (3.5-4.5); Sodium 141 mEq/L (136-145); eGFR For African Americans > 60 (> 60); eGFR For Non-African Americans > 60 (> 60)
[2017-06-24] MEDS: *HR* Enoxaparin 40 MG/0.4 ML SYRINGE SQ SCH (06:15)
[2017-06-24] MEDS: metroNIDAZOLE 500 MG TABLET PO SCH (08:25)
[2017-06-24] MEDS: Gabapentin 300 MG CAPSULE PO SCH (08:25)
[2017-06-24] MEDS: Cholecalciferol (D-3) 1,000 UNIT TABLET PO SCH (08:25)
[2017-06-24] MEDS: Isosorbide MONOnitrate (24 HR) 60 MG TAB.ER.24H PO SCH (08:25)
[2017-06-24] MEDS: Insulin LISPRO 300 UNITS/3 ML VIAL SQ SCH ×2 (08:26→12:52)
[2017-06-24] MEDS: Ibuprofen 400 MG TABLET PO PRN (10:37)
--- NOTE | 2017-06-24 10:49 | Discharge Summary ---
Date of Encounter: 06/24/17 Time of Encounter: 10:48 - Discharge Diagnosis (1) Gastroenteritis Priority: Primary Status: Resolved (2) Viral syndrome Priority: Primary Status: Resolved (3) Sepsis secondary to UTI Priority: Primary Status: Ruled-out (4) HTN (hypertension) Priority: Secondary Status: Chronic Qualifiers: Hypertension type: essential hypertension Qualified Code(s): I10 - Essential (primary) hypertension (5) DVT prophylaxis Priority: Primary Status: Acute (6) Diabetes Priority: Secondary Status: Chronic Qualifiers: Diabetes mellitus type: type 2 Diabetes mellitus complication status: with unspecified complications Diabetes mellitus mcc insulin use: without mcc use Qualified Code(s): E11.8 - Type 2 diabetes mellitus with unspecified complications - Discharge Medications Prescriptions: Loperamide [Imodium] 2 mg PO Q8HR PRN #10 PRN Reason: Diarrhea Blistex 1 appl TP QID PRN #1 applic PRN Reason: lip sores metroNIDAZOLE [Flagyl] 500 mg PO TID #9 tab Home Medications: Atorvastatin [Lipitor] 40 mg PO HS 06/21/17 [History] Cholecalciferol (Vitamin D3) [Vitamin D] 2,000 unit PO DAILY 06/21/17 [History] Citalopram Hydrobromide [Celexa] 40 mg PO DAILY 06/21/17 [History] Cyclobenzaprine [Flexeril] 10 mg PO TID 06/21/17 [History] Gabapentin [Neurontin] 600 mg PO TID 06/21/17 [History] HYDROcodone/Acet 5/325 mg [Earlimart 5-325 mg] 1 tab PO Q6H PRN 06/21/17 [History] Isosorbide MONOnitrate (24 HR) [Imdur] 60 mg PO DAILY 06/21/17 [History] Lisinopril [Zestril] 5 mg PO DAILY 06/21/17 [History] Metoprolol [Lopressor] 25 mg PO BID 06/21/17 [History] Omeprazole [PriLOSEC] 40 mg PO DAILY 06/21/17 [History] hydroCHLOROthiazide [Hydrochlorothiazide] 12.5 mg PO DAILY 06/21/17 [History] metFORMIN [Glucophage] 500 mg PO BIDWM 06/21/17 [History] Blistex 1 appl TP QID PRN #1 applic 06/24/17 [Rx] Loperamide [Imodium] 2 mg PO Q8HR PRN #10 06/24/17 [Rx] metroNIDAZOLE [Flagyl] 500 mg PO TID #9 tab 06/24/17 [Rx] Allergies/Adverse Reactions: Allergies No Known Allergies Allergy (Verified 06/21/17 12:28) Date of admission: 06/21/17 17:41 Primary care physician: Mckay Yan MD Discharging clinician: Kavon Anthony Anticipated date of discharge: 06/24/17 - Patient Status Disposition: Home, Self-Care Condition: Good Functional capacity at discharge: independent ambulation Overall status at discharge: patient is back to baseline - Discharge Instructions Follow Up With: Mckay Yan MD [Primary Care Provider] - (web request sent on 06/22/17) - Diet and Activity Activity: resume usual activities as tolerated Diet: advance to your usual diet Interval History: See below Hospital course: Ms. Gaxiola is a 56 year old female 56 F who was admitted and managed for Presumed sepsis based on fever, tachycardia, leukocytosis and a presumed GI source She also had cold sores and extremely high fevers, as well as gastroenteritis She has a PMH of HTN, CAD, DM, Obesity She is seen this morning with spouse at the bedside Denies new complains, diarrhea has resolved She has been afebrile for >48 hrs GI work up including C.diff was negative Urine and blood Cultures are preliminary negative She received 3 days of IV ceftriaxone and also po flagyl Since we did not have a source, we will discharge on flagyl and Imodium only Plan of care was discussed with her and her and they verbalize understanding - Time Spent with Patient Total time spent providing and/or coordinating discharge services: Greater than 30 minutes - Constitutional Vitals: Temp Pulse Resp BP Pulse Ox 98.0 F 70 13 104/50 96 06/24/17 07:06 06/24/17 07:06 06/24/17 07:06 06/24/17 07:06 06/24/17 07:06 General appearance: Present: cooperative, A&O X 3, pleasant, no acute distress, answers questions appropriately (Resident and resting in bed upon examination) - Head Head exam: Present: atraumatic, normocephalic - Eye Eye exam: Present: PERRL, conjuntiva pink, sclera anicteric Pupils: Present: PERRL - ENT Additional comments: Lip sores - Neck Neck exam general surgery: Present: supple, trachea midline. Absent: lymphadenopathy - Respiratory Respiratory exam: Present: CTAB. Absent: accessory muscle use, rales, rhonchi, wheezes - Cardiovascular Cardiovascular exam: Present: RRR, +S1, +S2. Absent: diastolic murmur, gallop, rubs, systolic murmur - GI/Abdominal GI/Abdominal exam: Present: normal bowel sounds, soft, no peritoneal signs. Absent: distended, tenderness - Extremities Exam Extremities exam: Present: warm, radial pulses palpable and symmetrical. Absent : calf tenderness, cyanotic, pedal edema - Neurological Exam Neurological exam: Present: alert, CN II-XII intact, oriented X3, no focal deficits. Absent: pronater drift, facial droop, speech deficit - Skin Skin exam: Present: dry, intact
[2017-06-24 11:19] VITALS: BP 117/78
== END 2017-06-24 13:01 | disposition home or self-care (01) | DRG 392 ==
LOC: EMEROO 12:19 → 2ANU 12:19
PROVIDERS: ADMIT Internal Medicine Endocrinology, Diabetes & Metabolism; ATTEND Internal Medicine